=== PATIENT | female | born 1990 | race Caucasian/White ===

== ENCOUNTER 2018-08-28 23:34 | Emergency (ER) | payer BC, MEDICAID, OTHER ==
[~2018-08-28] VITALS: Ht 162.6 cm; Wt 59.5 kg
[~2018-08-28 23:34] MED LIST: CEPH500C PO; OMEG10006 PO; PREN1TAB31 PO
[2018-08-28 23:37] VITALS: BP 116/58; PULSE 77; RESP 18; Ht 162.6 cm; Wt 59.5 kg
[2018-08-29] MEDS ORDERED: ACETAMINOPHEN 500 MG TAB PO STA (00:14)
--- NOTE | 2018-08-29 00:18 | ERD ---
ER Documentation Chief Complaint Chief Complaint vaginal bleeding x 1 day, abd pain, states 11 weeks HPI This is a 28-year-old female presents here in emergency department with com plaints of vaginal bleeding for about a day. Stated that she is 11 weeks . LMP: 06/19/2018. MELODIE: [birth year]/19/2010. A0. Denies headache, head injury, loss of consciousness, dizziness, neck pain, neck stiffness, throat pain, difficulty swallowing, difficulty breathing lying flat, shoulder pain, chest pain, back pain, nausea, vomiting, constipation, diarrhea, loss of bowel and bladder control, trauma, injury, falls, difficulty walking due to pain, numbness or tingling sensation, calf pain, recent travel, recent major surgery in the last 3 weeks, calf pain, recent long travel, recent exposure to any illness, recent antibiotic use in the last 3 months, fever, chills, seizures. Past medical history: Surgical history: Social: Denies smoking, use of alcoholic beverages, use of illegal drugs. ROS All systems reviewed and are negative except as per history of present illness. Medications Home Meds Active Scripts Vit No.124/Iron/FA ( Vitamin Tablet) 1 Each Tablet, 1 EACH PO DAILY, #30 TAB Prov:PASILABAN,KLAR F 08/29/18 Nitrofurantoin Monohyd Macrocr* (Macrobid*) 100 Mg Capsr, 100 MG PO BID for 7 Days, CAP Prov:PASILABAN,KLAR F 08/29/18 Acetaminophen* (Tylophen*) 500 Mg Capsule, 1 CAP PO Q6H PRN for PAIN AND OR ELEVATED TEMP, #20 CAP Prov:PASILABAN,KLAR F 08/29/18 Metoclopramide* (Reglan*) 10 Mg Tablet, 10 MG PO Q6 PRN for NAUSEA AND/OR VOMITING, #20 TAB Prov:PASILABAN,KLAR F 08/29/18 Cephalexin* (Cephalexin*) 500 Mg Capsule, 500 MG PO Q6 for 10 Days, CAP Prov:CASI DUGGAN MD 03/04/15 Reported Medications [place]-3 Fatty Acids (OMEGA-3) 1,000 Mg Capsule, 1000 MG PO 03/04/15 Vits #90-Iron Fum-FA ( Formula) 1 Each Tablet, 1 TAB PO DAILY, TAB 03/04/15 Allergies Allergies: Coded Allergies: No Known Allergy (Unverified , 03/04/15) PMhx/Soc Hx Alcohol Use: No Hx Substance Use: No Hx Tobacco Use: No Physical Exam Vitals Physical Exam Const: No acute distress Head: Atraumatic Eyes: Normal Conjunctiva ENT: Normal External Ears, Nose and Mouth. Neck: Full range of motion. No meningismus. Resp: Clear to auscultation bilaterally Cardio: Regular rate and rhythm, no murmurs Abd: Soft, non tender, non distended. Normal bowel sounds Skin: No petechiae or rashes Back: No midline or flank tenderness. No CVA tenderness. Ext: No cyanosis, or edema Neur: Awake and alert Psych: Normal Mood and Affect Results 24 hrs Laboratory Tests Test 08/29/18 00:30 08/29/18 00:47 Urine Color STRAW Urine Clarity CLEAR Urine pH 7.0 Urine Specific [place] 1.011 Urine Ketones NEGATIVE mg/dL Urine Nitrite NEGATIVE mg/dL Urine Bilirubin NEGATIVE mg/dL Urine Urobilinogen NEGATIVE mg/dL Urine Leukocyte Esterase TRACE Julio César/ul Urine Microscopic RBC > 182 /HPF Urine Microscopic WBC 10 /HPF Urine Squamous Epithelial Cells FEW /HPF Urine Bacteria FEW /HPF Urine Hemoglobin 3+ mg/dL Urine Glucose NEGATIVE mg/dL Urine Total Protein NEGATIVE mg/dl White Blood Count 5.6 10^3/ul Red Blood Count 3.57 10^6/ul Hemoglobin 10.8 g/dl Hematocrit 30.7 % Mean Corpuscular Volume 86.0 fl Mean Corpuscular Hemoglobin 30.3 pg Mean Corpuscular Hemoglobin Concent 35.2 g/dl Red Cell Distribution Width 12.0 % Platelet Count 158 10^3/UL Mean Platelet Volume 10.9 fl Immature Granulocytes % 0.400 % Neutrophils % 65.3 % Lymphocytes % 25.6 % Monocytes % 6.3 % Eosinophils % 2.2 % Basophils % 0.2 % Nucleated Red Blood Cells % 0.0 /100WBC Immature Granulocytes # 0.020 10^3/ul Neutrophils # 3.7 10^3/ul Lymphocytes # 1.4 10^3/ul Monocytes # 0.4 10^3/ul Eosinophils # 0.1 10^3/ul Basophils # 0.0 10^3/ul Nucleated Red Blood Cells # 0.0 10^3/ul Sodium Level 138 mmol/L Potassium Level 3.8 mmol/L Chloride Level 102 mmol/L Carbon Dioxide Level 26 mmol/L Anion Gap 10 Blood Urea Nitrogen 13 mg/dl Creatinine 0.59 mg/dl Est Glomerular Filtrat Rate mL/min > 60 mL/min Glucose Level 92 mg/dl Calcium Level 9.0 mg/dl Total Bilirubin 0.1 mg/dl Direct Bilirubin 0.00 mg/dl Indirect Bilirubin 0.1 mg/dl Aspartate Amino Transf (AST/SGOT) 19 IU/L Alanine Aminotransferase (ALT/SGPT) 16 IU/L Alkaline Phosphatase 39 IU/L Total Protein 6.6 g/dl Albumin 3.8 g/dl Globulin 2.80 g/dl Albumin/Globulin Ratio 1.35 Amylase Level 88 U/L Lipase 104 U/L Beta HCG, Quantitative 447041.0 mIU/ml Current Medications Medications Dose Sig/Lynda Start Time Status Last (Trade) Ordered Route PRN Stop Time Admin Dose Reason Admin 500 mg ONCE STAT 08/29/18 DC Acetaminophen PO 00:14 (Tylenol 08/29/18 Tab) 00:17 Procedures/MDM Diagnostic tests: Urinalysis: Reviewed. Culture urine: Sent. Type and Rh: A Positive. Beta-hCG quantitative:833598.0 Blood works: Reviewed. OB ultrasound: 1. Single live intrauterine with an estimated gestational age of 11 weeks 2 days based on ultrasound measurement.. Patient was initially requesting a pelvic exam. This case was discussed with my supervising physician, Dr. Deric Gan who agreed my medical decision that the pelvic exam is not needed at this time. Treatment: Tylenol p.o. Re-evaluation: Denies vaginal bleeding. Denies abdominal pain/pelvic pain/back pain. Color appears normal for ethnicity. Stated that she feels much better at this time and that she is ready to go home. Differential diagnosis I have low suspicion for ectopic , sepsis, severe hemorrhage, pyelonephritis, appendicitis, obstructing kidney stone, septic stone, cholecystitis, pancreatitis. I explained to the patient the necessity of taking antibiotic but he strongly refused. Final diagnosis: Vaginal bleeding and patient. Prescription: Tylenol. vitamins. Reglan. Macrobid. Follow-up with OB in the next 24-48 hours. Come back here in the emergency department for any new symptoms or any worsening symptoms. All questions and concerns were answered. Patient and family members verbalized understanding and agreed with plan of care. Hemodynamically stable on discharge. Departure Diagnosis: Primary Impression: Vaginal bleeding in patient at less than 20 weeks gestation Condition: Stable Additional Instructions: Follow-up with OB in the next 24-48 hours. Come back here in the emergency department for any new symptoms or any worsening symptoms. LUIS EDUARDO JACKSON Aug 29, 2018 00:18
[2018-08-29] MEDS ORDERED: METO10TA92 PO (03:09)
[2018-08-29] MEDS ORDERED: ACET500C5 PO (03:09)
[2018-08-29] MEDS ORDERED: NITR-58 PO (03:09)
[2018-08-29] MEDS ORDERED: PREN-93 PO (03:10)
== END 2018-08-29 03:18 | disposition home or self-care (01) ==
LOC: FTE 23:34
DX: O20.9 Hemorrhage in early pregnancy, unspecified (principal); R10.2 Pelvic and perineal pain; Z3A.11 11 weeks gestation of pregnancy
CPT/HCPCS: 76801; 80053; 81001; 82150; 83690; 84702; 85025; 86850; 86900; 86901; 87086; Z7502; Z7610

== ENCOUNTER 2019-02-28 01:18 | Outpatient (CLI) | payer BC, OTHER ==
[~2019-02-28] VITALS: Ht 162.6 cm; Wt 67.0 kg
[~2019-02-28 01:18] MED LIST changes: +ACET500C5 PO; +METO10TA92 PO; +NITR-58 PO; +PREN-93 PO
[2019-02-28 02:08] VITALS: Ht 162.6 cm; Wt 67.0 kg
[2019-02-28 02:09] VITALS: BP 106/66; PULSE 78; RESP 18
--- NOTE | 2019-02-28 06:02 | PN ---
Triage Information Date/Time Reason for visit: Uterine contractions Weeks of Gestation 37+ weeks /Para Diabetes: none Hypertention: none Objective Vital Signs Date Temp Pulse Resp B/P (MAP) Pulse Ox O2 O2 Flow FiO2 Time Delivery Rate 02/28/19 98.3 78 18 106/66 99 Room Air 02:09 (79) Heart Rate: 120's Heart Rate Comments Reactive Contractions: 6-10 Minutes Apart Exam Cervix 2-3 cm Disposition: Discharge Assessment/Plan Patient denie any leakage of fluid or vaginal bleeding. patient reports good movement. IGLESIA TO MD Feb 28, 2019 06:02
--- NOTE | 2019-02-28 06:21 | TRIAGE ---
OB Triage Datetime Report Generated by CPN: 02/28/2019 06:20 Datetime: 02/28/2019 05:55 Vaginal Exam Dilatation (cms): 2.5 Effacement (%): 50 Station: -3 Exam By: Dr. Delshad Membrane Status: Intact Datetime: 02/28/2019 04:58 Labor Evaluation Monitor Mode: Palpation Quality: Mild Pain Assessment Pain Scale: 6 Pain Presence: Intermittent Pain Type: Cramping Pain Location: Abdomen Datetime: 02/28/2019 04:56 Vaginal Exam Dilatation (cms): 3.5 Effacement (%): 70 Station: -3 Exam By: Kailey Norris RN Membrane Status: Intact Vaginal Bleeding: None Cervix, Consistency: Moderate Cervix, Position: Posterior Datetime: 02/28/2019 02:48 Labor Evaluation Monitor Mode: Palpation Quality: Mild Datetime: 02/28/2019 01:48 Stage of : OB Triage Assessment Type: Triage Maternal Assessment Level of Consciousness: Keenly Alert, Responsive DTR's/Clonus: DTRs 2+; No Clonus Headache: Denies Blurred Vision: No Respiratory Effort: Unlabored; Regular Rhythm; Equal Expansion Breath Sounds, Left: Clear and Equal Breath Sounds, Right: Clear and Equal Nausea/Vomiting: Denies RUQ Epigastric Pain: Denies Lower Extremities Edema: None Degree: None Upper Extremities Edema: None Degree: None Facial Edema: None Fall Risk Assessment History of Falling: (0) No Secondary Diagnosis: (0) No Ambulatory Aid: (0) Bedrest/Nurse Assist IV Therapy: (0) No Gait: (0) Normal/Bedrest/Immobile Mental Status: (0) Oriented to Own Ability Fall Score: 0 Fall Risk Score Definition: No Risk: No action required Pain Assessment Pain Scale: 4 Pain Presence: Intermittent Pain Type: Cramping Pain Location: Abdomen Vaginal Exam Dilatation (cms): 3.0 Effacement (%): 70 Station: -3 Exam By: Kailey Norris RN Vaginal Bleeding: None Cervix, Consistency: Moderate Cervix, Position: Posterior Presentation 'A': Cephalic Datetime: 02/28/2019 01:40 Stage of : OB Triage Temperature Route: Oral Labor Evaluation Monitor Mode: External (Annotations: APPLIED) Heart Rate Monitor Mode: External US (Annotations: APPLIED) Datetime: 02/28/2019 01:31 EGA: 38.1 Datetime: 02/28/2019 01:15 Time of Arrival: 02/28/2019 01:15 Arrived By: Wheelchair Arrived From: Home Chief Complaint: CONTRACTIONS Movement: Present Contractions: Regular Time Contractions Began: 02/27/2019 10:00 Contractions: Every 3-4 minutes Rupture of Membranes: Denies Vaginal Bleeding: None Vaginal Discharge: Denies Recent Sexual Intercouse: Denies Abdominal Trauma: Not Applicable Patient Complaints: Contractions Time Provider Notified: 02/28/2019 02:30 Provider Notified: Dr. Jacobsen Initial Plan: [facility]
== END 2019-02-28 06:10 | disposition home or self-care (01) ==
LOC: L-D 01:18 → OBT 01:18
PROVIDERS: ATTEND Obstetrics & Gynecology
DX: O47.1 False labor at or after 37 completed weeks of gestation (principal); Z3A.37 37 weeks gestation of pregnancy
CPT/HCPCS: G0463

== ENCOUNTER 2019-03-04 22:07 | Inpatient (IN) | payer BC, OTHER ==
[~2019-03-04] VITALS: Ht 161.3 cm; Wt 66.9 kg
[~2019-03-04 22:07] MED LIST changes: -ACET500C5 PO; -CEPH500C PO; -METO10TA92 PO; -NITR-58 PO; -PREN-93 PO
[2019-03-04 22:09] VITALS: Ht 161.3 cm; Wt 66.9 kg
[2019-03-04 22:18] VITALS: BP 100/63; PULSE 92; RESP 18
[2019-03-04] MEDS ORDERED: LACTATED RINGER'S 1,000 ML IV PRN (23:21)
[2019-03-04] MEDS ORDERED: CARBOPROST 250 MCG INJ IM PRN (23:30)
[2019-03-04] MEDS ORDERED: LIDOCAINE 1% (MPF) 30 ML INJ INJ PRN (23:30)
[2019-03-04] MEDS ORDERED: OXYTOCIN 30 UNITS/LR 500 ML IV PRN (23:30)
[2019-03-04] MEDS ORDERED: OXYTOCIN 30 UNITS/LR 500 ML IV SCH ×2 (23:30)
[2019-03-04] MEDS ORDERED: METHYLERGONOVINE 0.2 MG INJ IM PRN (23:30)
[2019-03-04] MEDS ORDERED: MINERAL OIL LIGHT 10 ML VIAL TOP PRN (23:30)
[2019-03-04] MEDS ORDERED: BUTORPHANOL 2 MG INJ IV PRN (23:30)
[2019-03-04] MEDS ORDERED: MISOPROSTOL 200 MCG TAB PR PRN (23:30)
[2019-03-04] MEDS ORDERED: IBUPROFEN 600 MG TAB PO PRN (23:30)
[2019-03-05] MEDS: LACTATED RINGER'S 1,000 ML IV SCH ×3 (00:17→22:11)
[2019-03-05] MEDS ORDERED: OXYTOCIN 30 UNITS/LR 500 ML IV SCH (20:30)
--- NOTE | 2019-03-05 21:47 | HP ---
Date/Time of Note Date/Time of Note DATE: 03/05/19 TIME: 21:38 OB - History Hx of Present Free Text/Dictation 29y.o MELODIE 03/19/19 here at 37w6d with c/o leaking fluid since 1700 03/04/19 and uc's for the last 2hrs q3-6min. VE 4/70/-3 TAJ 18.4 Had limited care admitted for expectant management possible augmentation. Chief Complaint: leaking fluid and uc's Estimated Due Date: Mar 19, 2019 : 2 Para: 1 Spontaneous : 0 Therapeutic : 0 Care: Limited Care Ultrasounds: Other Obstetrical Complications: None Medical Complications: None Past Family/Social History * Past Medical, Surgical, Family and Obstetric Histories reviewed from chart. Blood Type: A+ Rubella: immune RPR/VDRL: Negative GBS Status: Negative HBsAG: Negative OB Admission Exam Vital Signs Vital Signs Vital Signs Date Temp Pulse Resp B/P (MAP) Pulse Ox O2 O2 Flow FiO2 Time Delivery Rate 03/04/19 97.9 92 18 100/63 Room Air 22:18 (75) Physical Exam HEENT: WNL Heart: Rhythm Normal Lungs: Clear, Equal Abdomen: WNL Extremities: Normal Reflexes: Normal Cervical Dilatation: 4cm Effacement: Other (70%) Station: -3 Membranes: Intact Amniotic Fluid: Unevaluable Heart Rate: 130's Accelerations: Accelerations Present Decelerations: No Decelerations Varibility: Moderate Contractions on Admission: < 5 Minutes Apart Intensity: Mild Last 72 hours Lab Results CBC & BMP 03/05/19 01:00 OB Assessment/Plan Other Assessment: IUP 37w6d ? SROM in labor Plan: Other (poss augmentation) USMAN GIBBONS MD Mar 05, 2019 21:47
--- NOTE | 2019-03-05 21:53 | QN ---
Documentation Comment patient desire to be augmented due severe pelvic discomfort VE 03/05/1909/23/1919 3/50/-3 rather than / but membrane is bulging ARM done large amount of clear fluid USMAN GIBBONS MD Mar 05, 2019 21:53
[2019-03-06] MEDS ORDERED: DIPHENHYDRAMINE 50 MG INJ IV PRN (00:30)
[2019-03-06] MEDS ORDERED: FENTAnyl 2MCG/ML-ROPIV 0.2% 100 ML BAG EPI SCH (00:30)
[2019-03-06] MEDS ORDERED: NALOXONE (0.4 MG/ML) INJ IV PRN (00:30)
[2019-03-06] MEDS ORDERED: ONDANSETRON 4 MG INJ IV PRN (00:30)
--- NOTE | 2019-03-06 00:32 | PREAC ---
Date/Time of Note Date/Time of Note DATE: 03/06/19 TIME: 00:30 Anesthesia Eval and Record Evaluation Time Pre-Procedure Interview DATE: 03/06/19 TIME: 00:30 Age 29 Sex female NPO: 8 hrs Preoperative diagnosis IUP Planned procedure L&D Epidural Past Medical History Past Medical History: Includes Surgery & Anesthesia Issues No known issue Meds Anticoagulation: No Beta Ashley within 24 hr: No Reason Beta Ashley not given: Pt. not on B-Ashley Reported Medications [place]-3 Fatty Acids (OMEGA-3) 1,000 Mg Capsule, 1000 MG PO 03/04/15 Vits #90-Iron Fum-FA ( Formula) 1 Each Tablet, 1 TAB PO DAILY, TAB 03/04/15 Discontinued Scripts Vit No.124/Iron/FA ( Vitamin Tablet) 1 Each Tablet, 1 EACH PO DAILY, #30 TAB Prov:PASILABAN,ISABELAR F 08/29/18 Nitrofurantoin Monohyd Macrocr* (Macrobid*) 100 Mg Capsr, 100 MG PO BID for 7 Days, CAP Prov:PASILABANISABELAR F 08/29/18 Acetaminophen* (Tylophen*) 500 Mg Capsule, 1 CAP PO Q6H PRN for PAIN AND OR ELEVATED TEMP, #20 CAP Prov:PASILABAN,ISABELAR F 08/29/18 Metoclopramide* (Reglan*) 10 Mg Tablet, 10 MG PO Q6 PRN for NAUSEA AND/OR VOMITING, #20 TAB Prov:PASILABAN,KLAR F 08/29/18 Cephalexin* (Cephalexin*) 500 Mg Capsule, 500 MG PO Q6 for 10 Days, CAP Prov:CASI DUGGAN MD 03/04/15 Current Medications Lactated Ringer's 1,000 ml @ 125 mls/hr Q8H IV Last administered on 03/05/19at 22:11; Admin Dose 125 MLS/HR; Start 03/04/19 at 23:21 Butorphanol Tartrate (Stadol) 2 mg Q2H PRN IV .PAIN SCALE 6-10; Start 03/04/19 at 23:30 Lidocaine (Xylocaine 1% (Mpf)) 30 ml ONCE PRN INJ .EPISIOTOMY; Start 03/04/19 at 23:30 Oxytocin/Lactated Ringer's 500 ml @ 500 mls/hr ONCE POST IV ; Start 03/04/19 at 23:30 Oxytocin/Lactated Ringer's 500 ml @ 125 mls/hr POST IV ; Start 03/04/19 at 23:30 Ibuprofen (Motrin) 600 mg ONCE PRN PO .PAIN 1-5; Start 03/04/19 at 23:30 Lactated Ringer's 1,000 ml @ 2,000 mls/hr Q30M PRN IV .ANESTHESIA Last administered on 03/05/19at 23:39; Admin Dose 2,000 MLS/HR; Start 03/04/19 at 23:21 Oxytocin/Lactated Ringer's 500 ml @ 0 mls/hr ONCE PRN IV .VAGINAL BLEEDING; Start 03/04/19 at 23:30 Methylergonovine Maleate (Methergine) 0.2 mg ONCE PRN IM .VAGINAL BLEEDING; Start 03/04/19 at 23:30 Carboprost Tromethamine (Hemabate) 250 mcg ONCE PRN IM .VAGINAL BLEEDING; Start 03/04/19 at 23:30 Misoprostol (Cytotec) 1,000 mcg ONCE PRN NC .VAGINAL BLEEDING; Start 03/04/19 at 23:30 Mineral Oil (Muri-Lube) PRN PRN TOP VAGINAL DELIVERY; Start 03/04/19 at 23:30 Oxytocin/Lactated Ringer's 500 ml @ 0 mls/hr FOR AUGMENTATION IV Last administered on 03/05/19at 20:58; Admin Dose 0 MLS/HR; Start 03/05/19 at 20:30 Meds reviewed: Yes Allergies Coded Allergies: No Known Allergy (Unverified , 02/28/19) Allergies Reviewed: Yes Labs/Studies Labs Reviewed: Reviewed by anesthesiologist Result Diagram: 03/05/19 0100 Laboratory Tests 03/05/19 01:00 Blood Bank Test 03/05/19 01:00 Antibody Screen NEGATIVE Blood Type A POSITIVE Rh Immune Globulin Candidate NO test: Positive Studies: ECG Pre-procedure Exam Last vitals Vital Signs Date Temp Pulse Resp B/P (MAP) Pulse Ox O2 O2 Flow FiO2 Time Delivery Rate 03/04/19 97.9 92 18 100/63 Room Air 22:18 (75) Airway: Adequate mouth opening, Adequate thyromental dist Mallampati: Mallampati II Teeth: Normal Lung: Normal Heart: Normal ASA Physical Status ASA physical status: 2 Emergency: None Planned Anesthetic Neuraxial: Epidural Planned Pain Management Epidural, Parenteral pain med Pre-operative Attestations Prior to commencing anesthesia and surgery, the patient was re-evaluated, there was verification of: *The patient's identity *The results of appropriate recent lab work and preoperative vital signs *The above evaluation not changing prior to induction *Anesthetic plan, risk benefits, alternative and complications discussed with patient/family; questions answered; patient/family understands, accepts and wishes to proceed. ANSELMO MORALES MD Mar 06, 2019 00:32
[2019-03-06] MEDS: LACTATED RINGER'S 1,000 ML IV SCH (04:02)
[2019-03-06 10:10] VITALS: BP 93/53; PULSE 82; RESP 20
[2019-03-06] MEDS ORDERED: OXYCODONE/ASPIRIN (4.88/325) TAB PO PRN ×2 (11:00)
[2019-03-06] MEDS ORDERED: OXYTOCIN 30 UNITS/LR 500 ML IV PRN (11:00)
[2019-03-06] MEDS ORDERED: ZOLPIDEM 5 MG TAB PO PRN (11:00)
[2019-03-06] MEDS ORDERED: CARBOPROST 250 MCG INJ IM PRN (11:00)
[2019-03-06] MEDS ORDERED: MISOPROSTOL 200 MCG TAB PR PRN (11:00)
[2019-03-06] MEDS ORDERED: METHYLERGONOVINE 0.2 MG INJ IM PRN (11:00)
[2019-03-06] MEDS: LANOLIN HPA 1 PKT TOP PRN ×2 (11:17→20:29)
[2019-03-06] MEDS: BENZOCAINE 20% 56 ML SPRAY TOP PRN ×2 (11:17→23:31)
[2019-03-06] MEDS: WITCH HAZEL/GLYCERIN PAD PR PRN ×2 (11:17→23:31)
[2019-03-06] MEDS: IBUPROFEN 600 MG TAB PO SCH ×5 (11:17→23:31)
[2019-03-06 12:00] VITALS: BP 102/57; PULSE 72; RESP 19
[2019-03-06 17:59] VITALS: BP 101/59; PULSE 86; RESP 20
--- NOTE | 2019-03-06 18:44 | LDN ---
Date/Time of Note Date/Time of Note DATE: 03/06/19 TIME: 18:34 Delivery Summary of normal female with x2 tight nuchal cord Weeks of Gestation 38w1d Placenta Delivered: Spontaneously, Intact & Complete Meconium: none Episiotomy: No Perineal laceration: 1 Laceration repair: periurethral laceration perineal laceration 000ch gut Anesthesia type: Epidural Estimated blood loss: 350 Sponge & Needle done & correct: Yes All needle counts correct: Yes Any foreign bodies felt in the: No Delivery Information Sex Sex: female Apgars 1 Minute: 7 5 Minute: 8 10 Minute: 9 Suctioning Nose & mouth suctioned at jann: Yes Delee suction performed: Yes Umbilical Cord Umbilical cord with: 3 Vessels Cord presentations: nuchal cord Nuchal cord present X: 2 Cord Blood was obtained: Yes Mother & Baby Disposition Disposition Mom & Baby to Maternity; Good: Yes Mom transferred to: Other Baby to NICU: No USMAN GIBBONS MD Mar 06, 2019 18:44
[2019-03-06] MEDS: SENNA/DOCUSATE NA (8.6MG/50MG) TAB PO SCH (20:29)
[2019-03-06 20:30] VITALS: BP 98/56; PULSE 93; RESP 18
[2019-03-07] VITALS: BP 99/60; PULSE 89; RESP 18
[2019-03-07 03:30] VITALS: BP 97/58; PULSE 84; RESP 18
[2019-03-07] MEDS: IBUPROFEN 600 MG TAB PO SCH ×3 (06:00→17:54)
[2019-03-07 08:00] VITALS: BP 101/56; PULSE 82; RESP 19
[2019-03-07] MEDS: SENNA/DOCUSATE NA (8.6MG/50MG) TAB PO SCH (09:30)
--- NOTE | 2019-03-07 12:26 | PAC ---
Date/Time of Note Date/Time of Note DATE: 03/07/19 TIME: 12:26 Post-Anesthesia Notes Post-Anesthesia Note Last documented vital signs Vital Signs Date Temp Pulse Resp B/P (MAP) Pulse Ox O2 O2 Flow FiO2 Time Delivery Rate 03/07/19 97.7 82 19 101/56 Room Air 08:00 (71) Activity: WNL Respiratory function: WNL Cardiovascular function: WNL Mental status: Baseline Pain reasonably controlled: Yes Hydration appropriate: Yes Nausea/Vomiting absent: Yes Comments BP:110/56, P:78, Spo2:100%, T:98,9 ANSELMO MORALES MD Mar 07, 2019 12:26
[2019-03-07 16:10] VITALS: BP 103/59; PULSE 85; RESP 16
--- NOTE | 2019-03-07 17:56 | PD.PPDC ---
CALCULATION REVIEWER Discharge Instruction Diagnosis Myrbo0Pa Final Diagnosis: Vspgj1w s/p Condition Squdt8Lj Patient Condition: Srfsk5t Stable Diet Ulaus2Lk Diet: Ijzaw2w Resume Regular Diet Activity/Restrictions Frrml3Sf Activity: Psied3n May Shower Gtojv6Hv Restrictions: Kfymr3l No Lifting No Sexual Activity Nothing in the Vagina No [place] No Tampons, douche Follow-up Follow-up with Physician: 2, Week/Weeks Return to clinic for Hmidv5Wp IDE[employer] MAN Instructions: Prmbq1a Fever greater than 101 Chills Worsening abdominal pain Excessive Vaginal Bleeding More than 2 pads per hour Unable to tolerate diet Uswgl7Hh OB Instructions: Uxsrm1l Breast Tenderness Depression Blurried Vision Headache USMAN GIBBONS MD Mar 07, 2019 17:56
[2019-03-07] MEDS: BENZOCAINE 20% 56 ML SPRAY TOP PRN (18:01)
[2019-03-07] MEDS: WITCH HAZEL/GLYCERIN PAD PR PRN (18:01)
[2019-03-07] MEDS: LANOLIN HPA 1 PKT TOP PRN (18:01)
--- NOTE | 2019-03-07 18:07 | DS ---
Date/Time of Note Date/Time of Note DATE: 03/07/19 TIME: 18:06 Obstetrical Discharge Record Final Diagnosis Final Diagnosis: Term delivered Vaginal Delivery Obstetrical Delivery: Spontaneous, Laceration, Repaired Complications Augmentation: Yes Rupture of Membranes: No Condition on Discharge Physical Assessment Last Vitals: VSS afebrile Voiding: Yes Bowel Movement: Yes Breast: Soft, non-tender Fundus: Firm Abdomen and Incision: soft non tender Episiotomy: n/a Calf Tenderness: No Patient Condition: Stable USMAN GIBBONS MD Mar 07, 2019 18:07
[2019-03-08] MEDS ORDERED: DIPHTH/TET/ACEL PERTUSS (ADULT) 0.5 ML VIAL IM* ONE (09:00)
--- NOTE | 2019-03-08 19:00 | DELSUM ---
Delivery Summary A-C Datetime Report Generated by CPN: 03/08/2019 19:00 DELIVERY PERSONNEL Cafeteria Associate: Ghukasyan, Alicja MATERNAL INFORMATION Delivery Anesthesia: Epidural Medications in Delivery: 30 UNITS OF PIT IN 500 CC LR Delivery QBL (ml): 356 Placenta Cultured: No Maternal Complications: None RN Comments: CAME IN LABOR LABOR SUMMARY EDC: 03/19/2019 00:00 No. Babies in Womb: 1 Attempted: No Labor Anesthesia: Epidural LABOR INFORMATION Reason for Induction: Not Applicable Onset of Labor: 03/06/2019 19:30 Complete Dilatation: 03/06/2019 06:56 Group B Beta Strep: Negative Antibiotics # of Doses: 0 Steroids Given: None Reason Steroids Not Administered: Not Applicable MEMBRANES Membranes Rupture Method: Artificial Rupture of Membranes: 03/05/2019 19:30 Length of Rupture (hr): 12.58 Amniotic Fluid Color: Clear Amniotic Fluid Amount: Large Amniotic Fluid Odor: None STAGES OF LABOR Stage 1 hr: -12 Stage 1 min: -34 Stage 2 hr: 1 Stage 2 min: 9 Stage 3 hr: 0 Stage 3 min: 4 Total Time in Labor hr: -11 Total Time in Labor min: -21 VAGINAL DELIVERY Episiotomy: None Laceration Extension: First Degree Laceration Type: Perineal; Vaginal; Periurethral (Annotations: Data stored by N on behalf of user) Laceration Repair: Yes Initial Vag Sponge Count: 10 Final Vag Sponge Count: 10 Initial Vag Sharps Count: 2 Final Vag Sharps Count: 2 Sponge Count Correct: Yes Sharps Count Correct: Yes Count Comment: 1 SHARP ADDED DURING DELIVERY BABY A INFORMATION Delivery Date/Time: 03/06/2019 08:05 Method of Delivery: Vaginal Born in Route : No : N/A Forceps: N/A Vacuum Extraction: N/A Shoulder Dystocia : N/A SHOULDER DYSTOCIA BABY A Delivery Date/Time: 03/06/2019 08:05 PRESENTATION/POSITION BABY A Presentation: Cephalic Cephalic Presentation: Vertex Vertex Position: Left Occipital Anterior Breech Presentation: N/A PLACENTA INFORMATION BABY A Placenta Delivery Time : 03/06/2019 08:09 Placenta Method of Delivery: Spontaneous Placenta Status: Delivered SCORES BABY A Heart Rate 1 min: >100 bpm Resp Effort 1 min: Good Cry Reflex Irritability 1 min: Cough/Sneeze/Pulls Away Muscle Tone 1 min: Some Flexion of Extrem Color 1 min: Blue/Pale Resuscitation Effort 1 min: Tactile Stimulation SCORE 1 MIN: 7 Heart Rate 5 min: >100 bpm Resp Effort 5 min: Good Cry Reflex Irritability 5 min: Cough/Sneeze/Pulls Away Muscle Tone 5 min: Active Motion Color 5 min: Blue/Pale Resuscitation Effort 5 min: Tactile Stimulation SCORE 5 MIN: 8 Heart Rate 10 min: >100 bpm Resp Effort 10 min: Good Cry Reflex Irritability 10 min: Cough/Sneeze/Pulls Away Muscle Tone 10 min: Active Motion Color 10 min: Body [place], Extremit Blue Resuscitation Effort 10 min: Tactile Stimulation SCORE 10 MIN: 9 INFANT INFORMATION BABY A Gestational Age at Delivery: 38.1 Gestational Status: Early Term- 37- 38.6 Weeks Outcome : Liveborn, with signs of life Infant Condition : Stable Sex: Female IDENTIFICATION/MEDS BABY A ID Band Number: [id number] ID Band Location: Right Leg; Left Arm Sensor Applied: Yes Sensor Number: [id number] Sensor Location : Cord Clamp Vitamin K Given : Not Given Erythromycin Given: Not Given WEIGHT/LENGTH BABY A Birthweight (gm): 3335 Infant Weight (lb): 7 Infant Weight (oz): 6 Length (in): 19.75 Infant Length (cm): 50.17 CORD INFORMATION BABY A No. Cord Vessels: 3 Nuchal Cord : Around Neck x2, Tight Cord Blood Taken: Yes Suction: Mouth; Nose ASSESSMENT BABY A Infant Complications: None Physical Findings at Delivery: Within Normal Limits Infant Respirations: Appears Normal Railway Switch Operator/ALS Called : No Infant Care By: AVNI BEY Transferred To: Remains with Mother
== END 2019-03-07 18:30 | disposition home or self-care (01) | DRG 807 ==
LOC: OBT 22:07 → L-D 22:08 → OBT 23:20 → L-D 03-05 02:10 → PP1 03-06 10:09
PROVIDERS: ADMIT Obstetrics & Gynecology; ATTEND Obstetrics & Gynecology
PROC: 10E0XZZ Delivery of Products of Conception, External Approach (ICD-10-PCS; principal; 2019-03-06)
PROC: 0HQ9XZZ Repair Perineum Skin, External Approach (ICD-10-PCS; 2019-03-06)
DX: O69.1XX0 Labor and delivery complicated by cord around neck, with compression, not applicable or unspecified (principal); Z37.0 Single live birth; O70.0 First degree perineal laceration during delivery; Z3A.38 38 weeks gestation of pregnancy
CPT/HCPCS: 62322; 76815; 84112; 85025; 85610; 85730; 86592; 86850; 86900; 86901; 87340; G0463; J2590; J3010; J7120